=== PATIENT | female | born 1965 | race Caucasian/White ===

== ENCOUNTER → 2023-08-22 13:52 | Outpatient (REF) | payer BC, SELFPAY | LOC: WDC 13:52 | PROVIDERS: ATTENDING PHYSICIAN Obstetrics & Gynecology Gynecology; FAMILY PHYSICIAN Internal Medicine | DX: R92.2 Inconclusive mammogram (principal) | CPT/HCPCS: 76641 ==

== ENCOUNTER → 2023-10-31 07:24 | Outpatient (REF) | payer BC, SELFPAY | LOC: HWWDC 07:24 | PROVIDERS: ATTENDING PHYSICIAN Obstetrics & Gynecology Gynecology; FAMILY PHYSICIAN Internal Medicine | DX: Z12.31 Encounter for screening mammogram for malignant neoplasm of breast (principal) | CPT/HCPCS: 77063; 77067 ==

== ENCOUNTER 2024-04-06 06:25 | Day surgery (SDC) | payer BC, SELFPAY | END 2024-04-06 16:05 | disposition home or self-care (01) | LOC: GI 06:25 | PROVIDERS: ATTENDING PHYSICIAN Internal Medicine Gastroenterology | DX: Z12.11 Encounter for screening for malignant neoplasm of colon (principal); Z86.0100 Personal history of colon polyps, unspecified; D12.3 Benign neoplasm of transverse colon | CPT/HCPCS: 45380; 88305 ==

== ENCOUNTER 2024-05-14 03:15 | Emergency (ER) | payer OTHER, SELFPAY ==
[2024-05-14 03:19] VITALS: BP 172/93
--- NOTE | 2024-05-14 03:52 | ED.GENMED ---
History of Present Illness
General
Chief Complaint: Abdominal Pain
Source: patient
Time Seen by Provider: 05/14/24 03:27
Nursing documentation reviewed up to this point in time: agreed with
History of Present Illness
History of Present Illness:
Pleasant 59-year-old female presents the emergency department with right upper quadrant abdominal pain. She states that around 2 PM today she was out at the [facility] and eating brunch. She had prime rib. Shortly thereafter she developed this
right upper quadrant abdominal pain. Patient states that while the pain waxed and waned throughout the day, the sense of fullness and the feeling of bloating persisted. Patient did a Google search and reports that her symptoms leading to
gallbladder issues. Since the pain was reduced significantly throughout the course of the afternoon she decided to wait it out. This evening right after going to bed she had a return of pain so she called 911 and came into the emergency
department. Patient has been n.p.o. except for peppermint tea since 3 PM. She read that peppermint tea could help with gallbladder issues. Patient denies previous abdominal surgeries with this exception of 2 C-sections years ago. Denies fever,
chills, chest pain, or shortness of breath.
Review of Systems
Review of Systems
Allergies reviewed?: Yes
All Other Systems: Not applicable
Constitutional: Reports no symptoms
EENT: Reports no symptoms
Respiratory: Reports no symptoms
Cardiac: Reports no symptoms
ABD/GI: Reports abdominal pain and nausea
: Reports no symptoms
Musculoskeletal: Reports no symptoms
Skin: Reports no symptoms
Neurological: Reports no symptoms
Endocrine: Reports no symptoms
Hematologic/Lymphatic: Reports no symptoms
Psychiatric: Reports no symptoms
Phy Exam
General Physical Exam
General Presentation: well appearing and no apparent distress
General Skin: warm and dry
General Habitus: normal
General Mental: alert
General Hydration: appears well hydrated
ENT Exam
ENT Exam: EOMI, pharynx normal, neck supple and normocephalic
Eye Exam
Eye Exam: PERRL, cornea clear and conjunctiva normal
Cardiovascular Exam
Cardiovascular Exam: regular rate/rhythm, no edema, no murmur and normal peripheral pulses
Pulmonary Exam
Pulmonary Exam: lungs clear, no respiratory distress, no rales, no crackles, no rhonchi, no stridor, no wheezing and no cough
Gastrointestinal Exam
Gastrointestinal Exam: normal bowel sounds, soft, no organomegaly, no pulsatile mass and non distended
Palpation: right upper quadrant: Mild tenderness
Neurological Exam
Neurological Exam: alert, oriented x3, no motor deficits and speech normal
Musculoskeletal Exam
Musculoskeletal Exam: full ROM and no edema
Skin Exam
Skin Exam: normal color, warm/dry, no rash and no petechia
Psychiatric Exam
Psychiatric Exam: normal mood/affect
Course
Orders/Labs/Results
Orders:
Orders
05/14/24 03:25
IV Insert/Care/Rem.- Treatment PRN
05/14/24 03:41
Complete Blood Count/With Diff Urgent
Comprehensive Metabolic Panel Urgent
Lipase Urgent
Urinalysis Reflex To Culture Urgent
Date Specimen was Collected: 05/14/24
Time Specimen was Collected: 03:25
Urine Microscopic Reflex Cult Urgent
05/14/24 03:53
US Abdomen Complete/Upper Urgent
Comment:
Reason For Exam: RUQ pain
Abnormal Lab Results
05/14/24
03:41
MCHC 32.7 L g/dL
(33.0-37.0)
Absolute Monos (auto) 0.7 H 10^3/uL
(0.1-0.6)
BUN 21 H mg/dl
(7-17)
Glucose 100 H mg/dl
(70-99)
Ur Occult Blood Reflex 2+ A
(Negative)
Urine RBC 3-6 A /HPF
(0-2)
Urine Bacteria (Reflex) Few A
(Negative)
05/14/24 03:41
05/14/24 03:41
Vital Signs
Initial and Last Documented VS:
Initial Vital Signs
Temp Pulse Resp BP Pulse Ox
97.9 F 65 20 172/93 96
05/14/24 03:19 05/14/24 03:19 05/14/24 03:19 05/14/24 03:19 05/14/24 03:19
Last Documented Vital Signs
Temp Pulse Resp BP Pulse Ox
97.9 F 66 16 142/99 97
05/14/24 03:19 05/14/24 06:19 05/14/24 06:19 05/14/24 06:19 05/14/24 06:19
*Critical Care Note
Total Time (30-74mins, 75-104mins- exclusive of procedures): Not Applicable
Update Note
Update Note:
IMPRESSION:
Distended gallbladder. No sonographic evidence of cholelithiasis or acute cholecystitis.
Common bile duct measures 4 mm.
Somewhat echogenic liver suggesting fatty infiltration. Mild hepatomegaly.
Unremarkable sonographic appearance of the bilateral kidneys, spleen, and visualized pancreas.
Patient reluctant to stay in the hospital for continued observation and possible further testing. 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 Ultrasound is unremarkable.
Spoke with Dr. Lorenzo Pastor, on-call for general surgery. He suggested a bedside surgical consult. I discussed this plan with the patient who is in agreement.
ED Attending Note
-
Portions of this chart may have been created with voice recognition software.� Occasional wrong word or��sound alike� substitutions may have occurred due to the inherent limitations of voice recognition software.
Discharge Plan
Departure
Patient Disposition: Home (Routine Discharge)
Patient with high blood pressure during this ER visit?: Yes
Discharge Problem:
Gall bladder disease
Instructions: Gallstones ED, Abdominal Pain
Prescriptions:
No Action
Itis-Field
1,000 mg PO BID
Rx Instructions:
just started this 05/13/24
Referrals:
Jose Juan Mejía I., [Family Provider] -
Sean Christianson MD [Active] -
Activity Restrictions/Additional Instructions:
It was a pleasure meeting you and taking part in your care. We hope for your continued healing and wellness.
Please read discharge instructions in their entirety. However, they are for general education and may not describe your exact diagnosis at discharge. Information on your ER visit and medical conditions were discussed with you along with appropriate
follow up information...
If indicated, please take your medications as instructed and indicated on discharge paperwork.
Please schedule a follow up appointment as directed. Call to schedule an appointment
Please return to the emergency department with ANY change in, persisting, or worsening of symptoms. If any of your symptoms do not improve, or persist, or become more severe within 6-12 hours, please return to the emergency department for further
care.
Please return to the emergency department if you develop a headache, neck pain/stiffness, fever greater than 100.4F, chest pain, shortness of breath, persistent nausea, vomiting, slurred speech, difficulty walking, numbness/tingling, weakness, signs
of infection or any other symptoms that are worrisome to you.
If you have any questions or concerns please do not hesitate to call the Hospital at or E-mail me directly at [email or web address]
Interventions
Interventions:
*Risk Screen - Suicide Last Done: 05/14/24 03:19
*General Assessment Last Done: 05/14/24 03:19
*Neglect/Abuse Screening Last Done: 05/14/24 03:19
*ED- Fall Risk Assessment Last Done: 05/14/24 03:19
*ED COVID-19 Vaccine History Last Done: 05/14/24 03:19
*Nursing Disposition Last Done: 05/14/24 08:26
[facility]-Zogzyvtxkk Assessment Last Done: 05/14/24 03:50
Discharge Date and Time
Discharge Date/Time: 05/14/24 08:25
Print Language: LITHUANIAN
[2024-05-14 04:05] LABS: % Basophils 0.7 % (0-2); % Eosinophils 1.7 % (0-6); % Immature Granulocytes 0.4 % (0-0.5); % Lymphocytes 37.4 % (20.5-51.1); % Monocytes 8.8 % (1.7-9.3); Absolute Basophils 0.1 10^3/uL (0-0.2); Absolute Eosinophils 0.1 10^3/uL (0-0.7); Absolute Lymphocytes 3.1 10^3/uL (1.2-3.4); Absolute Monocytes 0.7 10^3/uL (0.1-0.6); Absolute Neutrophils 4.3 10^3/uL (1.4-6.5); Hematocrit 43.4 % (37.0-47.0); Hemoglobin 14.2 g/dL (12.0-16.0); Mean Corp Hgb Conc. 32.7 g/dL (33.0-37.0); Mean Corpuscular Hgb 29.1 pg (27.0-31.0); Mean Corpuscular Volume 88.9 fL (81.0-99.0); Mean Platelet Volume 10.2 fL (7.4-10.4); Nucleated Red Blood Cells % 0 %; Platelet Count 249 10^3/uL (130-400); Red Blood Cell Count 4.88 10^6/uL (4.20-5.40); Red Cell Dist. Width 14.2 % (11.5-14.5); White Blood Cell Count 8.3 10^3/uL (4.8-10.8)
[2024-05-14 04:09] LABS: Urine Albumin Negative (Neg - Trace); Urine Bilirubin Negative (Negative); Urine Character Clear (Clear); Urine Color Yellow; Urine Glucose Negative (Negative); Urine Ketone Negative (Negative); Urine Leukocyte Negative (Negative); Urine Nitrite Negative (Negative); Urine Occult Blood 2+ (Negative); Urine Urobilinogen Negative (Neg - 1+)
[2024-05-14 04:24] VITALS: BP 137/69
[2024-05-14 04:25] LABS: ALT (SGPT) 33 U/L (0-35); AST (SGOT) 29 U/L (14-36); Albumin 4.3 g/dl (3.5-5.0); Alkaline Phosphatase 123 U/L (38-126); Blood Urea Nitrogen 21 mg/dl (7-17); Calcium 9.9 mg/dl (8.4-10.2); Carbon Dioxide 23 mmol/L (22-30); Chloride 105 mmol/L (98-107); Glucose 100 mg/dl (70-99); Lipase 72 U/L (23-300); Potassium 4.6 mmol/L (3.5-5.1); Sodium 138 mmol/L (135-145); Total Bilirubin 0.9 mg/dl (0.2-1.3); Total Protein 7.8 g/dl (6.3-8.2); eGFR > 60.00
[2024-05-14 04:46] LABS: Urine Bacteria Few (Negative); Urine White Cell 0-2 /HPF (0-5)
[2024-05-14 06:19] VITALS: BP 142/99
--- NOTE | 2024-05-14 09:30 | CON.GS ---
Addendum entered and electronically signed by Sean Christianson MD 05/14/24 09:54:
I saw and examined the patient independently.
The Wildlife Conservation Officer's note was reviewed and I agree with the note, assessment and plan except where noted below.
Comment: This is a 59-year-old female with a history of hyperlipidemia, C-sections x 3 presented to the ED with right upper quadrant pain that began yesterday around 7 PM in the setting of a somewhat fatty meal earlier that day. She denies nausea
vomiting fevers chills or prior episodes. Ultrasound imaging does not show any stone disease in the gallbladder. She is not tender to palpation. Unclear if her symptoms are even related to the gallbladder though biliary dyskinesia seems most
likely given in the constellation of findings above. That said, it is possible that the ultrasound missed stones so an MRI would also be a reasonable first study. In either case however she is clinically well and stable for discharge from surgery
perspective currently.
No acute surgical intervention or surgical admission warranted.
Okay to advance diet and DC per the ED.
Patient to follow-up with me as an outpatient in 4 weeks where we can discuss further imaging/testing, particularly if she has recurrent episodes.
I spent 60 minutes in total for the care of this patient today including direct patient care and counseling, reviewing labs, imaging, coordination of care, as well as documentation.
Original Note:
Consultation
-
Reason for Consultation: biliary colic
Medical History
-
Chief Complaint: RUQ pain
History of Present Illness:
Ms Muro is a 59 yo female with a h/o HLD and x3 who presented through the ED with RUQ pain which began yesterday evening around 7pm. Earlier that day, she had had a large brunch with her family and had prime rib. She noted the initial
episode of pain lasted for about 3-4 hours and then resolved. It occurred again around 1:30am prompting her to present to the ED for evaluation. She notes that she feels much better currently. There is a residual soreness to the RUQ, but no true
pain. She denies nausea or vomiting, fevers or chills. She denies prior episodes.
Past Medical History
Past Medical History: Hypercholesterolemia and Other (obesity)
Past Surgical History: (x2) and Other (Colonoscopy 04/07 with polyps removed)
Social History
Tobacco: Non-Smoker
Alcohol: None
Drug: None
Family History
Family History: Reviewed & Not Pertinent
Allergies / Home Medications
Allergy/AdvReac Type Severity Reaction Status Date / Time
No Known Allergies Allergy Verified 05/14/24 03:18
�Medication �Instructions �Recorded �Confirmed �Type
Itis-Field 1,000 mg PO BID 05/14/24 05/14/24 History
Review of Systems
-
History Source: Patient
All other systems: Negative unless noted
A 10 point review of systems was completed, and was negative except as per HPI.
Physical Exam
Vital Signs
Temp Pulse Resp BP Pulse Ox
97.9 F 66 16 142/99 97
05/14/24 03:19 05/14/24 06:19 05/14/24 06:19 05/14/24 06:19 05/14/24 06:19
Body Mass Index (BMI) 0.0
Lab Results
05/14/24 03:41
05/14/24 03:41
WBC 8.3 10^3/uL (4.8-10.8) 05/14/24 03:41
Hgb 14.2 g/dL (12.0-16.0) 05/14/24 03:41
Hct 43.4 % (37.0-47.0) 05/14/24 03:41
Plt Count 249 10^3/uL (130-400) 05/14/24 03:41
Abs Immat Gran (auto) 0.0 10^3/uL (0-0.05) 05/14/24 03:41
Neutrophils % 51.0 % (42.2-75.2) 05/14/24 03:41
Physical Exam
General: Well Developed and Well Nourished
HEENT: Moist Mucous Membranes
Respiratory: Non Labored Respirations
GI: Soft, Non Distended and Tender (very mild to RUQ)
Skin: Warm
Neuro: Awake, Alert and AO x 3
Data Reviewed
-
Ultrasound: Report Reviewed by me, Discussed with Physician and Discussed with Patient
Labs: Labs Reviewed by me, Discussed with Physician and Discussed with Patient
Old Records: Reviewed
Assessment / Plan
-
59 yo female with RUQ pain a few hours after a large meal yesterday which persisted causing her to present through the ED. This is her first episode. Symptoms typical of biliary colic although no stones seen on US imaging. No evidence of
cholecystitis. Pain currently resolved. AFVSS. No leukocytosis, normal LFT's and lipase.
OK for discharge from the ED
Will plan outpatient follow up for continued work up
== END 2024-05-14 08:25 | disposition home or self-care (01) ==
LOC: EMR 03:15
PROVIDERS: EMERGENCY PHYSICIAN Student in an Organized Health Care Education/Training Program; FAMILY PHYSICIAN Internal Medicine
DX: K82.8 Other specified diseases of gallbladder (principal); R03.0 Elevated blood-pressure reading, without diagnosis of hypertension
CPT/HCPCS: 99284; 76700; 80053; 81003; 81015; 83690; 85025

== ENCOUNTER → 2024-05-22 16:58 | Outpatient (REF) | payer OTHER, SELFPAY | LOC: RAD 16:58 | PROVIDERS: ATTENDING PHYSICIAN Nurse Practitioner Family; FAMILY PHYSICIAN Internal Medicine | DX: M79.10 Myalgia, unspecified site (principal); M25.59 Pain in other specified joint | CPT/HCPCS: 74177; Q9967 ==

== ENCOUNTER 2024-06-14 06:22 | Day surgery (SDC) | payer OTHER, SELFPAY | END 2024-06-14 15:22 | disposition home or self-care (01) | LOC: GI 06:22 | PROVIDERS: ATTENDING PHYSICIAN Internal Medicine Gastroenterology | DX: R10.10 Upper abdominal pain, unspecified (principal); K22.89 Other specified disease of esophagus; K44.9 Diaphragmatic hernia without obstruction or gangrene; K31.89 Other diseases of stomach and duodenum; K31.7 Polyp of stomach and duodenum; R13.10 Dysphagia, unspecified; K31.819 Angiodysplasia of stomach and duodenum without bleeding | CPT/HCPCS: 43251; 43239; 88305; 88342 ==

== ENCOUNTER → 2024-10-31 07:58 | Outpatient (REF) | payer OTHER, SELFPAY | LOC: HWWDC 07:58 | PROVIDERS: ATTENDING PHYSICIAN Internal Medicine; REFERRING PHYSICIAN Obstetrics & Gynecology Gynecology | DX: Z12.31 Encounter for screening mammogram for malignant neoplasm of breast (principal) | CPT/HCPCS: 77063; 77067 ==